=== PATIENT | female | born 1935 | race Caucasian/White ===

== ENCOUNTER 2017-03-28 05:49 | Inpatient (IN) | payer MEDICARE, MEDICAID ==
[~2017-03-28] VITALS: Ht 152.4 cm; Wt 58.0 kg
[~2017-03-28 05:49] MED LIST: ACET-458 PO; ALBU0.63 NEB; ALBUTERAL PO; ALPR0.25 PO; ALPR0.257 SL; ALPR1TAB6 PO; AMLO10TA2 PO; AMLO5TAB2 PO; AMLO5TAB4 PO; ATOR10TA9 PO; AZIT250T PO; CALC-570 PO; CALC1CAP8 PO; CEFD300C37 PO; CHOL400C PO; DOXY100T9 PO; ERGO500017 PO; FAMO-79 PO; FENT1PAT74 TD; HYDR-3237 PO; HYDROCODONE PO; METH750T2 PO; NICO-485 TD; OMEP-110 PO; ONDA4TAB10 PO; OXYB5TAB PO; OXYC-307 PO; PARO20TA98 PO; PRED10TA PO; PRED10TA14 PO; PRED5TAB PO; PREG50CA PO; PROM12.54 PR; SENN1TAB94 PO; TIOT18CA INH; UNKNOWN BP MED
[2017-03-28] MEDS ORDERED: ALBUTEROL/IPRATROPIUM 2.5MG/0.5MG, 3 ML ONE (07:00)
[2017-03-28] MEDS ORDERED: LACTATED RINGERS 1,000 ML IV SCH (07:03)
[2017-03-28] MEDS ORDERED: ALBUTEROL/IPRATROPIUM 2.5MG/0.5MG, 3 ML NPPB ONE (07:10)
[2017-03-28] MEDS ORDERED: EPINEPHRINE 1 MG/ML, 1ML ONE (07:14)
[2017-03-28] MEDS ORDERED: BUPIVACAINE/PF 0.5% ONE (07:14)
[2017-03-28] MEDS ORDERED: LIDOCAINE 1%, 2ML ONE (07:37)
[2017-03-28] MEDS ORDERED: LIDOCAINE 1%, 2ML SQ PRN (08:00)
[2017-03-28] MEDS ORDERED: ONDANSETRON 2MG/ML, 2ML ONE (08:29)
[2017-03-28] MEDS ORDERED: GLYCOPYRROLATE 0.2MG/1ML, 5ML ONE (08:29)
[2017-03-28] MEDS ORDERED: PROPOFOL 10 MG/ML, 20ML ONE (08:29)
[2017-03-28] MEDS ORDERED: CEFAZOLIN 1,000 MG ONE (08:29)
[2017-03-28] MEDS ORDERED: ROCURONIUM 10 MG/ML,10ML ONE (08:29)
[2017-03-28] MEDS ORDERED: NEOSTIGMINE 1 MG/ML, 10ML ONE (08:29)
[2017-03-28] MEDS ORDERED: SUCCINYLCHOLINE 20 MG/ML, 10ML ONE (08:29)
[2017-03-28] MEDS ORDERED: DEXAMETHASONE 4 MG/ML, 1ML ONE (08:29)
[2017-03-28] MEDS ORDERED: SUGAMMADEX 200 MG/2 ML IVPush ONE (08:33)
[2017-03-28 08:34] LABS: ALANINE AMINOTRANSFERASE 22 U/L (12-78); ALBUMIN 3.7 g/dL (3.4-5.0); ANION GAP 8 mmol/L (5-15); CALCIUM 8.6 mg/dL (8.5-10.1); CHLORIDE 107 mmol/L (98-107); CREATININE 0.63 mg/dL (0.55-1.02)
[2017-03-28] MEDS ORDERED: PHENYLEPHRINE 10 MG/ML ONE (08:34)
[2017-03-28 08:36] LABS: ALKALINE PHOSPHATASE 93 U/L (45-117); BILIRUBIN,TOTAL 0.6 mg/dL (0.2-1.0); TOTAL PROTEIN 6.8 g/dL (6.4-8.2)
[2017-03-28] MEDS ORDERED: FENTANYL PF 100 MCG/2ML ONE ×2 (08:37→10:46)
[2017-03-28] MEDS ORDERED: BUPIVACAINE/PF-EPI 0.25% 1:200K IM ONE (09:33)
[2017-03-28] MEDS ORDERED: MEPERIDINE/PF 25MG/0.5ML IVPush PRN (10:00)
[2017-03-28] MEDS ORDERED: morphine SULFATE 10 MG/ML, 1ML IV PRN (10:00)
[2017-03-28] MEDS ORDERED: OXYcodone 5 MG/5 ML ORAL.SOL UDC PO PRN (10:00)
[2017-03-28] MEDS ORDERED: HYDROcodone/APAP 7.5-325MG/15ML UDC PO PRN (10:00)
[2017-03-28] MEDS ORDERED: methylPREDNISolone SOD SUCC 40 MG/ML ONE (10:22)
[2017-03-28] MEDS ORDERED: methylPREDNISolone SOD SUCC 125 MG/2 ML ONE (10:22)
[2017-03-28] MEDS ORDERED: KETOROLAC 30 MG/1 ML ONE (10:46)
[2017-03-28] MEDS: FENTANYL PF 100 MCG/2ML IV PRN ×2 (10:49→11:00)
[2017-03-28] MEDS: KETOROLAC 30 MG/1 ML IV PRN ×2 (10:59→20:18)
[2017-03-28] MEDS ORDERED: PROMETHAZINE 25 MG/ML, 1ML IM PRN (11:00)
[2017-03-28] MEDS ORDERED: OMEPRAZOLE 20 MG CAPSULE.DR PO PRN (11:00)
[2017-03-28] MEDS ORDERED: hydrALAzine 20 MG/ML, 1ML IV PRN (11:00)
[2017-03-28] MEDS ORDERED: FAMOTIDINE 20 MG TABLET PO SCH (11:00)
[2017-03-28] MEDS ORDERED: DIPHENHYDRAMINE 25 MG CAPSULE PO PRN (11:00)
[2017-03-28] MEDS ORDERED: LORazepam 1MG TABLET PO PRN (11:00)
[2017-03-28] MEDS ORDERED: ALBUTEROL SULFATE 2.5 MG/3 ML NEB PRN (11:00)
[2017-03-28] MEDS ORDERED: ACETAMINOPHEN 650 MG SUPP PR PRN (11:00)
[2017-03-28] MEDS ORDERED: PROMETHAZINE 12.5 MG SUPP PR PRN (11:00)
[2017-03-28] MEDS ORDERED: ENALAPRILAT 1.25 MG/ML, 2ML IV PRN (11:00)
[2017-03-28] MEDS ORDERED: HYDROmorphone 2 MG/ML, 1ML ONE (11:11)
[2017-03-28] MEDS ORDERED: OXYcodone 5 MG/5 ML ORAL.SOL UDC ONE (11:11)
[2017-03-28] MEDS ORDERED: ACETAMINOPHEN 650 MG/20.3 ML UDC ONE (11:11)
[2017-03-28] MEDS: HYDROmorphone 1 MG/ML, 1ML IV PRN ×5 (11:14→11:52)
[2017-03-28] MEDS: ACETAMINOPHEN 650 MG/20.3 ML UDC PO PRN (11:25)
[2017-03-28] MEDS ORDERED: IPRATROPIUM 0.5 MG/2.5 ML INHA NPPB SCH (13:30)
[2017-03-28 14:15] VITALS: BP 123/61
[2017-03-28] MEDS: ALBUTEROL/IPRATROPIUM 2.5MG/0.5MG, 3 ML NPPB SCH ×2 (15:12→19:12)
[2017-03-28] MEDS: FAMOTIDINE 20 MG/2 ML IV SCH (15:19)
[2017-03-28] MEDS: LACTATED RINGERS 1,000 ML IV SCH (15:22)
[2017-03-28] MEDS: OXYcodone 5 MG/5 ML ORAL.SOL UDC PO PRN ×2 (15:32→20:18)
[2017-03-28] MEDS: CEFAZOLIN PMX 1GM/50ML 50 ML IVPB SCH (16:35)
[2017-03-28] MEDS: methylPREDNISolone SOD SUCC 125 MG/2 ML IVPush SCH (16:36)
[2017-03-28 19:31] VITALS: BP 140/51
[2017-03-28] MEDS: ATORVASTATIN 10 MG TABLET PO SCH (20:47)
[2017-03-28] MEDS: ONDANSETRON 2MG/ML, 2ML IVPush PRN (21:47)
[2017-03-29] MEDS: OXYcodone 5 MG/5 ML ORAL.SOL UDC PO PRN ×2 (00:42→10:02)
[2017-03-29 03:40] VITALS: BP 125/60
[2017-03-29] MEDS: methylPREDNISolone SOD SUCC 125 MG/2 ML IVPush SCH ×4 (04:12→22:55)
[2017-03-29] MEDS: CEFAZOLIN PMX 1GM/50ML 50 ML IVPB SCH (04:12)
[2017-03-29] MEDS: morphine SULFATE 10 MG/ML, 1ML IV PRN ×4 (04:13→21:18)
[2017-03-29] MEDS: LORazepam 2 MG/ML, 1ML IV PRN ×2 (04:13→21:17)
[2017-03-29] MEDS: ALBUTEROL/IPRATROPIUM 2.5MG/0.5MG, 3 ML NPPB SCH ×4 (06:00→21:32)
[2017-03-29] MEDS: LACTATED RINGERS 1,000 ML IV SCH (06:11)
[2017-03-29] MEDS: FAMOTIDINE 20 MG/2 ML IV SCH ×2 (06:12→18:21)
[2017-03-29 08:19] VITALS: BP 137/66
[2017-03-29] MEDS ORDERED: PAROXETINE 20 MG TABLET ONE (09:53)
[2017-03-29] MEDS: PREGABALIN 25 MG CAPSULE PO SCH (09:59)
[2017-03-29] MEDS: AMLODIPINE 5 MG TABLET PO SCH (09:59)
[2017-03-29] MEDS: PAROXETINE 10 MG TABLET PO SCH (10:01)
[2017-03-29] MEDS: ENOXAPARIN 40 MG/0.4 ML SQ SCH (10:04)
[2017-03-29] MEDS: FLUTICASONE/VILANTEROL 100-25MCG/INH INH SCH (10:05)
[2017-03-29] MEDS: OXYBUTYNIN CHLORIDE 5 MG PO SCH (10:05)
[2017-03-29] MEDS ORDERED: methylPREDNISolone SOD SUCC 125 MG/2 ML ONE (12:22)
[2017-03-29 13:53] VITALS: BP 112/50
[2017-03-29] MEDS ORDERED: FUROSEMIDE 20 MG/2 ML IV ONE (14:30)
[2017-03-29] MEDS ORDERED: POTASSIUM CHLORIDE 20 MEQ TAB.ER.PRT PO ONE (14:30)
[2017-03-29 19:06] VITALS: BP 137/57
[2017-03-29] MEDS: ATORVASTATIN 10 MG TABLET PO SCH ×2 (21:18→21:24)
[2017-03-30 04:25] VITALS: BP 135/67
[2017-03-30 04:31] VITALS: BP 135/67
[2017-03-30] MEDS: morphine SULFATE 10 MG/ML, 1ML IV PRN (04:40)
[2017-03-30] MEDS: methylPREDNISolone SOD SUCC 125 MG/2 ML IVPush SCH ×3 (05:45→22:11)
[2017-03-30] MEDS: FAMOTIDINE 20 MG/2 ML IV SCH ×2 (05:52→18:41)
[2017-03-30 06:01] LABS: CALCIUM 8.6 mg/dL (8.5-10.1); CHLORIDE 108 mmol/L (98-107)
[2017-03-30 06:04] LABS: ANION GAP 7 mmol/L (5-15); CREATININE 0.61 mg/dL (0.55-1.02)
[2017-03-30] MEDS: ALBUTEROL/IPRATROPIUM 2.5MG/0.5MG, 3 ML NPPB SCH ×4 (07:33→19:40)
[2017-03-30 08:15] VITALS: BP 139/39
[2017-03-30] MEDS ORDERED: PAROXETINE 20 MG TABLET ONE (08:26)
[2017-03-30] MEDS: PREGABALIN 25 MG CAPSULE PO SCH (08:31)
[2017-03-30] MEDS: ENOXAPARIN 40 MG/0.4 ML SQ SCH (08:31)
[2017-03-30] MEDS: KETOROLAC 30 MG/1 ML IV PRN ×2 (08:39→22:11)
[2017-03-30] MEDS: AMLODIPINE 5 MG TABLET PO SCH (09:05)
[2017-03-30] MEDS: PAROXETINE 10 MG TABLET PO SCH (09:05)
[2017-03-30] MEDS: FLUTICASONE/VILANTEROL 100-25MCG/INH INH SCH (09:13)
[2017-03-30] MEDS: OXYBUTYNIN CHLORIDE 5 MG PO SCH (09:13)
[2017-03-30] MEDS: OXYcodone 5 MG/5 ML ORAL.SOL UDC PO PRN ×4 (11:16→23:05)
[2017-03-30] MEDS ORDERED: BISACODYL 10 MG SUPP PR PRN (13:00)
[2017-03-30] MEDS ORDERED: POTASSIUM CHLORIDE 20 MEQ TAB.ER.PRT PO ONE (17:00)
[2017-03-30] MEDS ORDERED: FUROSEMIDE 40 MG/4 ML IV ONE (17:00)
[2017-03-30 19:18] VITALS: BP 131/67
[2017-03-30] MEDS: ATORVASTATIN 10 MG TABLET PO SCH (22:11)
[2017-03-31 02:25] VITALS: BP 147/67
[2017-03-31] MEDS: LORazepam 2 MG/ML, 1ML IV PRN ×2 (02:51→11:18)
[2017-03-31] MEDS: methylPREDNISolone SOD SUCC 125 MG/2 ML IVPush SCH (06:12)
[2017-03-31] MEDS: FAMOTIDINE 20 MG/2 ML IV SCH (06:12)
[2017-03-31 06:51] VITALS: BP 133/56
[2017-03-31] MEDS ORDERED: FUROSEMIDE 40 MG/4 ML IV ONE (07:00)
[2017-03-31] MEDS: ALBUTEROL/IPRATROPIUM 2.5MG/0.5MG, 3 ML NPPB SCH ×4 (07:13→20:16)
[2017-03-31] MEDS: ENOXAPARIN 40 MG/0.4 ML SQ SCH (09:00)
[2017-03-31] MEDS: OXYBUTYNIN CHLORIDE 5 MG PO SCH (09:00)
[2017-03-31] MEDS: PREGABALIN 25 MG CAPSULE PO SCH (09:00)
[2017-03-31] MEDS: FLUTICASONE/VILANTEROL 100-25MCG/INH INH SCH (09:00)
[2017-03-31] MEDS: PAROXETINE 10 MG TABLET PO SCH (09:00)
[2017-03-31] MEDS: KETOROLAC 30 MG/1 ML IV PRN ×2 (09:32→20:07)
[2017-03-31] MEDS ORDERED: PAROXETINE 20 MG TABLET ONE (10:30)
[2017-03-31] MEDS: AMLODIPINE 5 MG TABLET PO SCH (10:35)
[2017-03-31] MEDS: DOCUSATE 100 MG CAPSULE PO SCH (10:36)
[2017-03-31] MEDS: OXYcodone 5 MG/5 ML ORAL.SOL UDC PO PRN (10:43)
[2017-03-31] MEDS ORDERED: POLYETHYLENE GLYCOL 17 GM PACKET PO PRN ×2 (12:30→12:36)
[2017-03-31 13:02] VITALS: BP 91/59
[2017-03-31] MEDS: ACETAMINOPHEN 650 MG/20.3 ML UDC PO PRN (16:45)
[2017-03-31] MEDS: ATORVASTATIN 10 MG TABLET PO SCH (20:06)
[2017-03-31 20:12] VITALS: BP 115/68
[2017-04-01 00:49] VITALS: BP 126/71
[2017-04-01] MEDS: APAP/CODEINE 300/30MG TABLET PO PRN ×4 (01:07→23:13)
[2017-04-01] MEDS: ONDANSETRON 2MG/ML, 2ML IVPush PRN (03:05)
[2017-04-01] MEDS: KETOROLAC 30 MG/1 ML IV PRN ×4 (04:01→21:56)
[2017-04-01] MEDS: ALBUTEROL/IPRATROPIUM 2.5MG/0.5MG, 3 ML NPPB SCH ×4 (04:27→19:41)
[2017-04-01] MEDS: OXYBUTYNIN CHLORIDE 5 MG PO SCH (07:23)
[2017-04-01] MEDS: FLUTICASONE/VILANTEROL 100-25MCG/INH INH SCH (07:23)
[2017-04-01] MEDS: AMLODIPINE 5 MG TABLET PO SCH (07:24)
[2017-04-01] MEDS: PREGABALIN 25 MG CAPSULE PO SCH (07:26)
[2017-04-01] MEDS: ENOXAPARIN 40 MG/0.4 ML SQ SCH (07:27)
[2017-04-01] MEDS ORDERED: PAROXETINE 20 MG TABLET ONE (07:31)
[2017-04-01] MEDS: DOCUSATE 100 MG CAPSULE PO SCH (07:35)
[2017-04-01] MEDS: PAROXETINE 10 MG TABLET PO SCH (07:49)
[2017-04-01] MEDS ORDERED: FAMOTIDINE 20 MG/2 ML IV SCH (09:00)
[2017-04-01 10:55] VITALS: BP 100/61
[2017-04-01 16:12] VITALS: BP 133/63
[2017-04-01 20:41] VITALS: BP 146/58
[2017-04-01] MEDS: ATORVASTATIN 10 MG TABLET PO SCH (21:55)
[2017-04-01] MEDS: DIPHENHYDRAMINE 50 MG/ML, 1ML IV PRN (23:13)
[2017-04-02] MEDS: LORazepam 2 MG/ML, 1ML IV PRN ×2 (00:57→18:26)
[2017-04-02 05:12] VITALS: BP 94/62
[2017-04-02 07:27] VITALS: BP 113/61
[2017-04-02] MEDS: OXYBUTYNIN CHLORIDE 5 MG PO SCH (09:00)
[2017-04-02] MEDS: PREGABALIN 25 MG CAPSULE PO SCH (09:00)
[2017-04-02] MEDS: FLUTICASONE/VILANTEROL 100-25MCG/INH INH SCH (09:00)
[2017-04-02] MEDS: ENOXAPARIN 40 MG/0.4 ML SQ SCH (09:00)
[2017-04-02] MEDS: AMLODIPINE 5 MG TABLET PO SCH (09:00)
[2017-04-02] MEDS: PAROXETINE 10 MG TABLET PO SCH (09:00)
[2017-04-02] MEDS ORDERED: PAROXETINE 20 MG TABLET ONE (09:37)
[2017-04-02] MEDS: DOCUSATE 100 MG CAPSULE PO SCH (09:45)
[2017-04-02] MEDS: FAMOTIDINE 20 MG TABLET PO SCH (09:45)
[2017-04-02] MEDS: KETOROLAC 30 MG/1 ML IV PRN ×2 (09:45→16:16)
[2017-04-02] MEDS: ALBUTEROL/IPRATROPIUM 2.5MG/0.5MG, 3 ML NPPB SCH ×4 (09:51→19:30)
[2017-04-02] MEDS ORDERED: FLUT1AER INH (12:09)
[2017-04-02 13:01] VITALS: BP 87/47
[2017-04-02] MEDS ORDERED: SODIUM CHLORIDE 0.9%, 500ML IVBOLUS ONE (13:30)
[2017-04-02 15:02] LABS: BASOPHILS # (AUTO) 0.01 x10^3/uL (0-0.1); BASOPHILS % (AUTO) 0 % (0-1); EOSINOPHILS # (AUTO) 0.14 x10^3/uL (0-0.4); EOSINOPHILS % (AUTO) 2 % (1-7); LYMPHOCYTES # (AUTO) 0.66 x10^3/uL (1-3.4); LYMPHOCYTES % (AUTO) 8 % (22-44); MD NO; MEAN CORPUSCULAR HEMOGLOBIN 31.3 pg (27.0-34.8); MEAN CORPUSCULAR VOLUME 94.7 fL (80-100); MEAN PLATELET VOLUME 7.4 fL (7.4-10.4); MONOCYTES # (AUTO) 0.34 x10^3/uL (0.2-0.8); MONOCYTES % (AUTO) 4 % (2-9); NEUTROPHILS # (AUTO) 6.86 x10^3/uL (1.8-6.8); NEUTROPHILS % (AUTO) 86 % (42-75); PLATELET COUNT 230 x10^3/uL (130-400); RED CELL DISTRIBUTION WIDTH 16.1 % (9.6-15.2)
[2017-04-02 15:08] LABS: ANION GAP 5 mmol/L (5-15); CHLORIDE 105 mmol/L (98-107); CREATININE 0.65 mg/dL (0.55-1.02)
[2017-04-02 18:28] VITALS: BP 115/47
[2017-04-02] MEDS: ATORVASTATIN 10 MG TABLET PO SCH (19:43)
[2017-04-02] MEDS: DIPHENHYDRAMINE 50 MG/ML, 1ML IV PRN (21:56)
[2017-04-02] MEDS: APAP/CODEINE 300/30MG TABLET PO PRN (22:42)
[2017-04-03 02:44] VITALS: BP 123/71
[2017-04-03] MEDS: APAP/CODEINE 300/30MG TABLET PO PRN ×2 (05:14→13:53)
[2017-04-03] MEDS: ALBUTEROL/IPRATROPIUM 2.5MG/0.5MG, 3 ML NPPB SCH ×2 (06:00→10:29)
[2017-04-03 07:22] VITALS: BP 123/68
[2017-04-03] MEDS: PAROXETINE 10 MG TABLET PO SCH (09:00)
[2017-04-03] MEDS: ENOXAPARIN 40 MG/0.4 ML SQ SCH (09:00)
[2017-04-03] MEDS: FLUTICASONE/VILANTEROL 100-25MCG/INH INH SCH (09:00)
[2017-04-03] MEDS: DOCUSATE 100 MG CAPSULE PO SCH (09:00)
[2017-04-03] MEDS: OXYBUTYNIN CHLORIDE 5 MG PO SCH (09:00)
[2017-04-03] MEDS ORDERED: PAROXETINE 20 MG TABLET ONE (09:03)
[2017-04-03] MEDS: FAMOTIDINE 20 MG TABLET PO SCH (09:12)
[2017-04-03] MEDS: AMLODIPINE 5 MG TABLET PO SCH (09:12)
[2017-04-03] MEDS: PREGABALIN 25 MG CAPSULE PO SCH (09:18)
[2017-04-03] MEDS: OXYcodone 5 MG/5 ML ORAL.SOL UDC PO PRN (09:29)
[2017-04-03 12:27] VITALS: BP 104/43
[2017-04-03] MEDS ORDERED: ACET1TAB64 PO (16:19)
== END 2017-04-03 15:55 | disposition home health service (06) | DRG 353 ==
LOC: OUT 05:49 → ORIP 10:35 → 4NOR 12:37 → DCLOUNGE 04-03 15:14
PROVIDERS: ADMIT Thoracic Surgery (Cardiothoracic Vascular Surgery); ATTEND Thoracic Surgery (Cardiothoracic Vascular Surgery)
PROC: 3E0M45Z Introduction of Adhesion Barrier into Peritoneal Cavity, Percutaneous Endoscopic Approach (ICD-10-PCS; 2017-03-28)
PROC: 8E0W4CZ Robotic Assisted Procedure of Trunk Region, Percutaneous Endoscopic Approach (ICD-10-PCS; 2017-03-28)
PROC: 0WUF4JZ Supplement Abdominal Wall with Synthetic Substitute, Percutaneous Endoscopic Approach (ICD-10-PCS; principal; 2017-03-28 08:30)
DX: K43.0 Incisional hernia with obstruction, without gangrene (principal); J96.20 Acute and chronic respiratory failure, unspecified whether with hypoxia or hypercapnia; J44.1 Chronic obstructive pulmonary disease with (acute) exacerbation; J81.1 Chronic pulmonary edema; Z99.81 Dependence on supplemental oxygen; I25.10 Atherosclerotic heart disease of native coronary artery without angina pectoris; E78.5 Hyperlipidemia, unspecified; I11.9 Hypertensive heart disease without heart failure; M81.0 Age-related osteoporosis without current pathological fracture; R73.9 Hyperglycemia, unspecified; E55.9 Vitamin D deficiency, unspecified; M19.90 Unspecified osteoarthritis, unspecified site; F32.9 Major depressive disorder, single episode, unspecified; T38.0X5A Adverse effect of glucocorticoids and synthetic analogues, initial encounter; Z90.49 Acquired absence of other specified parts of digestive tract; Z88.5 Allergy status to narcotic agent; Z87.891 Personal history of nicotine dependence; Z82.49 Family history of ischemic heart disease and other diseases of the circulatory system; Z82.5 Family history of asthma and other chronic lower respiratory diseases
CPT/HCPCS: 36415; 71045; 80048; 80053; 82962; 84484; 85025; 93005; 93880; 94640; J0171; J0690; J1100; J1170; J1885; J1940; J2405; J2704; J2710; J3010; J3490; J7620; C1781; J0330; J1200; J2060; J2270; J2370; J2920; J2930; J7040; J7120; J7512; S0028